=== PATIENT | female | born 1965 ===

== ENCOUNTER 2018-08-01 22:20 | Emergency (ER) | payer MEDICAID ==
[2018-08-01 22:20] VITALS: BMI 32.9
[2018-08-01 22:38] VITALS: TEMP 98.3
[2018-08-01] MEDS ORDERED: (Novolin R) Insulin Human Regular 100 units/ml vial IVP STA ×2 (22:44→23:03)
[2018-08-01] MEDS ORDERED: Sodium Chloride 0.9% 1,000 ML IV ONE (22:44)
--- NOTE | 2018-08-01 23:02 | C.PDOC ---
History Of Present Illness 53 year old female, whose past medical history includes diabetes (non-compliant with medications) presents to the ED for evaluated of elevated blood sugar levels. Patient states she misplaced her medications and has been non-compliant for several months. She was evaluated at [facility], where she underwent labwork and was told that she is at a high risk for a heart attack. Patient was evaluated by her PMD and underwent bloodwork and EKG, of which the results are pending. Patient is scheduled to undergo a stress test and echocardiogram in three days. Patient states her PMD did not prescribe her with her diabetes medication because he is awaiting results of her labwork. Patient states she checked her blood glucose level today and found it to be above 500, prompting visit. She reports headache, dizziness, increased thirst and urinary frequency, dyspnea on exertion, and slight epigastric pain. She denies fever, chills, nausea, vomiting. Time Seen by Provider: 08/01/18 22:44 Chief Complaint (Nursing): High Blood Sugar History Per: Patient History/Exam Limitations: no limitations Onset/Duration Of Symptoms: Hrs Current Symptoms Are (Timing): Still Present Current Diabetic Medications: None Causative (Exacerbating) Factor(s): Missed Taking Medication Associated Infectious Symptoms: Urinary Frequency. denies: Nausea, Vomiting Treatment Prior To Provider Evaluation: None Additional History Per: Patient Past Medical History Reviewed: Historical Data, Nursing Documentation, Vital Signs Vital Signs: Last Vital Signs Temp 98.3 F 08/01/18 22:31 Pulse 70 08/01/18 22:31 Resp 18 08/01/18 22:31 BP 157/83 H 08/01/18 22:31 Pulse Ox 96 08/01/18 22:31 - Medical History PMH: Anxiety, Bronchitis, Depression, HTN (NO MEDS), Hypothyroidism Denies: Anemia, Chronic Kidney Disease Surgical History: No Surg Hx - [facility] Procedures NEBULIZER THERAPY (07/01/14) Family History: States: Unknown Family Hx - Social History Hx Tobacco Use: No Hx Alcohol Use: Yes Hx Substance Use: No - Immunization History Hx Tetanus Toxoid Vaccination: Yes Hx Influenza Vaccination: Yes (UTD) Hx Pneumococcal Vaccination: No Review Of Systems Constitutional: Positive for: Other (elevated blood sugar, increased thirst ). Negative for: Fever, Chills Gastrointestinal: Positive for: Abdominal Pain (epigastric ). Negative for: Nausea, Vomiting Genitourinary: Positive for: Frequency Neurological: Positive for: Headache, Dizziness Physical Exam - Physical Exam Appears: Non-toxic, No Acute Distress Skin: Normal Color, Warm, Dry Head: Atraumatic, Normacephalic Eye(s): bilateral: Normal Inspection Oral Mucosa: Moist Neck: Supple Chest: Symmetrical, No Deformity, No Tenderness Cardiovascular: Rhythm Regular, No Murmur Respiratory: Normal Breath Sounds, No Rales, No Rhonchi, No Wheezing Gastrointestinal/Abdominal: Soft, No Tenderness, No Guarding, No Rebound, Other (slightly obese ) Extremity: Normal ROM, Capillary Refill (less than 2 seconds ), No Other (pitting edema ) Neurological/Psych: Oriented x3, Normal Speech, Normal Cognition ED Course And Treatment - Laboratory Results Result Diagrams: 08/01/18 22:59 08/01/18 22:59 O2 Sat by Pulse Oximetry: 96 (on RA) Pulse Ox Interpretation: Normal Medical Decision Making Medical Decision Making: Impression: 53 year old female with elevated blood sugar Plan: * bloodwork * urinalysis * EKG * Novolin IVP * Metformin PO * IV Fluids * reassess and disposition Progress: Bloodwork, urinalysis, EKG ordered and reviewed. Novolin IVP, Metformin PO and IV Fluids given. Spoke with Dr. Lazcano, recommended control glucose and d/c on Metformin, with PMD f/u Disposition Discussed With Dr.: Beatriz Uriarte Counseled Patient/Family Regarding: Studies Performed, Diagnosis - Disposition Disposition: HOME/ ROUTINE Disposition Time: 23:51 Condition: GUARDED Forms: [facility] (Polish) - Clinical Impression Clinical Impression: Hyperglycemia - Scribe Statement The provider has reviewed the documentation as recorded by the Scribe (Jamila Little) Provider Attestation: All medical record entries made by the Scribe were at my direction and personally dictated by me. I have reviewed the chart and agree that the record accurately reflects my personal performance of the history, physical exam, medical decision making, and the department course for this patient. I have also personally directed, reviewed, and agree with the discharge instructions and disposition. Physician Patient Turnover Patient Signed Over To: Chava Garg Handoff Comments: pending VBG, glucouse control and final dispo.
[2018-08-01] MEDS ORDERED: (Novolin R) Insulin Human Regular 100 units/ml vial IVP ONE (23:06)
[2018-08-01 23:10] LABS: BASO # 0.1 K/uL (0.0-0.2); BASO % 0.8 % (0.0-2.0); EOS # 0.1 K/uL (0.0-0.7); HEMOGLOBIN 12.3 g/dL (11.0-16.0); LYMPH # 2.3 K/uL (1.0-4.3); LYMPH % 31.3 % (20.0-40.0); MEAN CELL VOLUME 81.7 fL (81.0-99.0); MEAN CORPUSCULAR HEMOGLOBIN 26.3 pg (27.0-31.0); MEAN CORPUSCULAR HGB CONC 32.2 g/dL (33.0-37.0); MEAN PLATELET VOLUME 10.1 fL (7.2-11.7); MONO # 0.6 K/uL (0.0-0.8); MONO % 8.4 % (0.0-10.0); NEUT # 4.2 K/uL (1.8-7.0); NEUT % 57.5 % (50.0-75.0); NRBC % 0.1 % (0.0-2.0); RBC 4.68 Mil/uL (3.80-5.20); RED CELL DISTRIBUTION WIDTH 16.1 % (11.5-14.5); WHITE BLOOD COUNT 7.3 K/uL (4.8-10.8)
[2018-08-01] MEDS ORDERED: (Novolin R) Insulin Human Regular 100 units/ml vial ONE (23:15)
[2018-08-01 23:30] LABS: ALB/GLOB RATIO 1.3 (1.0-2.1); ALT/SGPT 30 U/L (9-52); AST/SGOT 20 U/L (14-36); BLOOD UREA NITROGEN 13 mg/dL (7-17); CALCIUM 8.9 mg/dl (8.6-10.4); GFR NON-AFRICAN AMERICAN > 60
[2018-08-02] MEDS ORDERED: Sodium Chloride 0.9% 2,000 ML IV ONE (00:05)
[2018-08-02 00:09] VITALS: BP 145/64; PULSE 71; RESP 24; O2SAT 98
[2018-08-02 00:09] LABS: VENOUS BLOOD GAS BASE EXCESS 3.2 mmol/L (0.0-2.0); VENOUS BLOOD GAS PCO2 58 mmHg (40-60); VENOUS BLOOD GAS PO2 29 mm/Hg (30-55); VENOUS BLOOD PH 7.33 (7.32-7.43)
[2018-08-02] MEDS ORDERED: Sodium Chloride 0.9% 1,000 ML ONE (00:14)
[2018-08-02 00:42] LABS: SQUAMOUS EPITHIAL 16 /hpf (0-5); URINE BILIRUBIN NEGATIVE (NEGATIVE); URINE BLOOD NEGATIVE (NEGATIVE); URINE CLARITY Hazy (Clear); URINE COLOR Yellow (YELLOW); URINE GLUCOSE (UA) 3+ mg/dL (Normal); URINE LEUKOCYTE ESTERASE TRACE Leu/uL (Negative); URINE PROTEIN NEGATIVE (NEGATIVE); URINE UROBILINOGEN NORMAL mg/dL (0.2-1.0)
--- NOTE | 2018-08-03 14:47 | CARD ---
APPROVED REPORT Date of service: 08/01/2018 EKG Measurement Heart [id number] OR 142P36 [id number] <Conclusion> Normal sinus rhythm Normal ECG
== END 2018-08-02 01:14 | disposition home or self-care (01) ==
LOC: C.ER 22:20
DX: E11.65 Type 2 diabetes mellitus with hyperglycemia (principal); Z91.19 Patient's noncompliance with other medical treatment and regimen; I10 Essential (primary) hypertension; E03.9 Hypothyroidism, unspecified
CPT/HCPCS: 80053; 81001; 82009; 82803; 82948; 85025; 93005; 96361; 96374; 99285; J7030

== ENCOUNTER 2018-08-04 08:37 | Observation (INO) | payer MEDICAID ==
[2018-08-04 08:38] VITALS: BMI 32.9
--- NOTE | 2018-08-04 09:06 | C.PDOC ---
History Of Present Illness 53 y/o female, w/PMhx of diabetes and HTN, presents to the ER for evaluation after she was complaining of intermittent chest pain been present for the past 2 weeks. Patient was complaining of chest pain while having Echo done in the hospital today so decided to send her to the ER. Patient reports that she had midsternal chest pain and the pain radiates to the left side of her body. She notes that she was evaluated for chest pain at [facility] 1 week ago and she was discharged. She is also complaining of vomiting x5. Denies having fever, chills, SOB, leg swelling, abdominal pain, dysuria, and hematuria. Time Seen by Provider: 08/04/18 08:39 Chief Complaint (Nursing): Chest Pain History Per: Patient History/Exam Limitations: no limitations Onset/Duration Of Symptoms: Days Current Symptoms Are (Timing): Still Present Severity: Moderate Past Medical History Reviewed: Historical Data, Nursing Documentation, Vital Signs Vital Signs: Last Vital Signs Temp 98.1 F 08/04/18 08:46 Pulse 69 08/04/18 08:53 Resp 24 08/04/18 08:53 BP 185/79 H 08/04/18 08:53 Pulse Ox 95 08/04/18 08:53 - Medical History PMH: Anxiety, Bronchitis, Depression, HTN (NO MEDS), Hypothyroidism Denies: Anemia, Chronic Kidney Disease Other Surgeries: Hx of surgeries - [facility] Procedures NEBULIZER THERAPY (07/01/14) Family History: States: No Known Family Hx - Social History Hx Tobacco Use: No Hx Alcohol Use: Yes Hx Substance Use: No - Immunization History Hx Tetanus Toxoid Vaccination: Yes Hx Influenza Vaccination: Yes (UTD) Hx Pneumococcal Vaccination: No Review Of Systems Except As Marked, All Systems Reviewed And Found Negative. Constitutional: Negative for: Fever, Chills Cardiovascular: Positive for: Chest Pain Respiratory: Negative for: Shortness of Breath Gastrointestinal: Positive for: Vomiting. Negative for: Abdominal Pain, Diarrhea Genitourinary: Negative for: Dysuria, Hematuria Physical Exam - Physical Exam Appears: Non-toxic, No Acute Distress Skin: Normal Color, Warm, Dry Head: Atraumatic, Normacephalic Eye(s): bilateral: Normal Inspection Nose: Normal Oral Mucosa: Moist Neck: Supple Chest: Symmetrical, No Tenderness, No Ecchymosis, Other (no rash) Cardiovascular: Rhythm Regular Respiratory: Normal Breath Sounds, No Rales, No Rhonchi, No Wheezing Gastrointestinal/Abdominal: Normal Exam, Soft, No Tenderness, No Guarding, No Rebound Neurological/Psych: Oriented x3, Normal Speech ED Course And Treatment - Laboratory Results Result Diagrams: 08/04/18 09:23 08/04/18 09:23 Lab Interpretation: No Acute Changes ECG: Interpreted By Me ECG Rhythm: Sinus Rhythm ECG Interpretation: No Acute Changes Rate From EC O2 Sat by Pulse Oximetry: 95 (RA) Pulse Ox Interpretation: Normal - Radiology CXR: Interpreted by Me CXR Interpretation: Yes: No Acute Disease Progress Note: Treated with zofran IV Reassessment Condition: Improved - Physician Consult Information Physician Contacted: Beatriz Uriarte Outcome Of Conversation: admit Medical Decision Making Medical Decision Making: Plan: --Labs --EKG --CXR --UA --Zofran IV Disposition Discussed With Dr.: Beatriz Uriarte Doctor Will See Patient In The: Hospital Counseled Patient/Family Regarding: Studies Performed, Diagnosis, Need For Followup - Disposition Disposition: HOSPITALIZED Disposition Time: 10:30 Condition: STABLE - POA Present On Arrival: None - Clinical Impression Clinical Impression: Chest pain - 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 - Scribe Statement The provider has reviewed the documentation as recorded by the Jungibe Harvey Gardner Provider Attestation All medical record entries made by the Scribe were at my direction and personally dictated by me. I have reviewed the chart and agree that the record accurately reflects my personal performance of the history, physical exam, medical decision making, and the department course for this patient. I have also personally directed, reviewed, and agree with the discharge instructions and disposition.
[2018-08-04 09:29] LABS: BASO % 0.6 % (0.0-2.0); EOS # 0.1 K/uL (0.0-0.7); EOS % 1.5 % (0.0-4.0); HEMOGLOBIN 13.1 g/dL (11.0-16.0); LYMPH # 1.6 K/uL (1.0-4.3); LYMPH % 23.7 % (20.0-40.0); MEAN CELL VOLUME 79.9 fL (81.0-99.0); MEAN CORPUSCULAR HGB CONC 32.6 g/dL (33.0-37.0); MEAN PLATELET VOLUME 9.9 fL (7.2-11.7); MONO # 0.5 K/uL (0.0-0.8); MONO % 6.7 % (0.0-10.0); NEUT # 4.6 K/uL (1.8-7.0); NEUT % 67.5 % (50.0-75.0); NRBC % 0.1 % (0.0-2.0); RBC 5.01 Mil/uL (3.80-5.20); RED CELL DISTRIBUTION WIDTH 15.8 % (11.5-14.5); WHITE BLOOD COUNT 6.9 K/uL (4.8-10.8)
--- NOTE | 2018-08-04 09:37 | RAD ---
Date of service: 08/04/2018 HISTORY: SOB COMPARISON: Comparison chest dated 05/26/2016. TECHNIQUE: Chest PA and lateral FINDINGS: LUNGS: Suspect minor bibasilar atelectasis. PLEURA: No significant pleural effusion identified. No pneumothorax apparent. CARDIOVASCULAR: No aortic atherosclerotic calcification present. Normal cardiac size. No pulmonary vascular congestion. OSSEOUS STRUCTURES: Minor multilevel degenerative spondylosis of the thoracic spine. VISUALIZED UPPER ABDOMEN: Normal. OTHER FINDINGS: None. IMPRESSION: Minor bibasilar atelectasis.
[2018-08-04 09:42] LABS: ALB/GLOB RATIO 1.2 (1.0-2.1); ALBUMIN 4.4 g/dL (3.5-5.0); ALT/SGPT 37 U/L (9-52); AST/SGOT 25 U/L (14-36); BLOOD UREA NITROGEN 11 mg/dL (7-17); CALCIUM 9.9 mg/dl (8.6-10.4); GFR NON-AFRICAN AMERICAN > 60; LIPASE 64 U/L (23-300)
[2018-08-04 10:36] VITALS: RESP 20
[2018-08-04 10:56] LABS: HCG,QUALITATIVE URINE NEGATIVE (NEGATIVE)
[2018-08-04 11:02] LABS: SQUAMOUS EPITHIAL 11 /hpf (0-5); URINE BILIRUBIN NEGATIVE (NEGATIVE); URINE BLOOD NEGATIVE (NEGATIVE); URINE CLARITY Hazy (Clear); URINE COLOR Yellow (YELLOW); URINE GLUCOSE (UA) 3+ mg/dL (Normal); URINE LEUKOCYTE ESTERASE NEG Leu/uL (Negative); URINE PROTEIN NEGATIVE (NEGATIVE); URINE UROBILINOGEN NORMAL mg/dL (0.2-1.0)
[2018-08-04] MEDS ORDERED: Dextrose 50% SYRINGE Inj (50 ml) IV PRN (14:22)
[2018-08-04] MEDS ORDERED: Glucagon Recombinant 1 mg Inj IM PRN (14:22)
[2018-08-04] MEDS: (Novolog) Insulin Aspart, Recombinant 100 u/ml 10 ml vial SC SCH ×2 (18:00→21:46)
--- NOTE | 2018-08-04 21:05 | CARD ---
APPROVED REPORT Date of service: 08/04/2018 EKG Measurement Heart [id number] VA 132P37 [id number] <Conclusion> Normal sinus rhythm with sinus arrhythmia Normal ECG
[2018-08-04] MEDS: Ranolazine 500 mg Extended Release Tablets PO SCH (21:36)
--- NOTE | 2018-08-04 22:51 | CARD ---
APPROVED REPORT Date of service: 08/04/2018 EXAM: Two-dimensional and M-mode echocardiogram with Doppler and color Doppler. INDICATION Chest Pain 2D DIMENSIONS IVSd0.7 (0.7-1.1cm)LVDd4.5 (3.9-5.9cm) PWd0.8 (0.7-1.1cm)LA Jbqrtz85 (18-58mL) LVDs2.4 (2.5-4.0cm)FS (%) 46.7 % LVEF (%)78.3 (>50%)LVEF (Williamson's)70 % M-Mode DIMENSIONS Left Atrium (MM)2.59 (2.5-4.0cm)IVSd0.64 (0.7-1.1cm) Aortic Root3.07 (2.2-3.7cm)LVDd5.10 (4.0-5.6cm) Aortic Cusp Exc.1.85 (1.5-2.0cm)PWd0.68 (0.7-1.1cm) FS (%) 50 %LVDs2.57 (2.0-3.8cm) LVEF (%)81 (>50%) Mitral Valve MV E Gkzkxczl79.0cm/sMV A Ogkgycaq992.4cm/sE/A ratio0.8 TDI Lateral E' Peak V8.61cm/sMedial E' Peak V4.45cm/sE/Lateral E'9.5 E/Medial E'18.4 Tricuspid Valve TR Peak Zqyllfoi727sx/sTR Peak Gr.4vbTbNCTG54yuHv LEFT VENTRICLE The left ventricle is normal size. There is normal left ventricular wall thickness. Left ventricle systolic function is normal. The Ejection Fraction is >70%. There is normal LV segmental wall motion. Tissue Doppler imaging reveals abnormal left ventricular diastolic dysfunction. RIGHT VENTRICLE The right ventricle is normal size. There is normal right ventricular wall thickness. The right ventricular systolic function is normal. ATRIA The left atrium size is normal. The right atrium size is normal. The interatrial septum is intact with no evidence for an atrial septal defect. AORTIC VALVE The aortic valve is normal in structure. No aortic regurgitation is present. There is no aortic valvular stenosis. MITRAL VALVE The mitral valve is normal in structure. There is no evidence of mitral valve prolapse. There is no mitral valve stenosis. Mitral regurgitation is mild. TRICUSPID VALVE The tricuspid valve is normal in structure. There is trace to mild tricuspid regurgitation. Right ventricular systolic pressure is estimated at less than 30 mmHg. There is no pulmonary hypertension. PULMONIC VALVE The pulmonic valve is not well visualized. There is no pulmonic valvular regurgitation. GREAT VESSELS The aortic root is normal in size. PERICARDIAL EFFUSION There is no significant pericardial effusion. <Conclusion> Left ventricle systolic function is normal. The Ejection Fraction is >70%. Diastolic dysfunction. No aortic regurgitation is present. Mitral regurgitation is mild. There is trace to mild tricuspid regurgitation. There is no pulmonary hypertension. There is no pulmonic valvular regurgitation.
[2018-08-05 04:31] VITALS: O2SAT 96
[2018-08-05] MEDS: Levothyroxine 125 MCG TAB PO SCH (06:13)
[2018-08-05] MEDS: (Novolog) Insulin Aspart, Recombinant 100 u/ml 10 ml vial SC SCH ×4 (07:14→21:24)
--- NOTE | 2018-08-05 07:17 | CP.PCM.HP ---
History of Present Illness - History of Present Illness History of Present Illness: CC chest pain HPI 53 y/o female, w/PMhx of diabetes and HTN, presents to the ER for evaluation after she was complaining of intermittent chest pain been present for the past 2 weeks. Patient was complaining of chest pain while waiting to have Echo done in the hospital today . Patient reports that she had midsternal chest pain and the pain radiates to the left side of her body. Pt was sent to the ER for evaluation. She notes that she was evaluated for chest pain at [facility] 1 week ago and she was discharged. She is also complaining of vomiting x5. Denies having fever, chills, SOB, leg swelling, abdominal pain, dysuria, and hematuria Present on Admission - Present on Admission Any Indicators Present on Admission: Yes History of Uncontrolled Diabetes: Yes Review of Systems - EENT Nose/Mouth/Throat: Dry Mouth - Cardiovascular Cardiovascular: Chest Pain, Dyspnea on Exertion - Respiratory Respiratory: Dyspnea on Exertion - Gastrointestinal Gastrointestinal: Nausea Past Patient History - Infectious Disease Hx of Infectious Diseases: None - Past Medical History & Family History Past Medical History?: Yes - Past Social History Smoking Status: Never Smoked - CARDIAC Hx Hypertension: Yes (NO MEDS) - PULMONARY Hx Bronchitis: Yes - NEUROLOGICAL Hx Neurological Disorder: No - HEENT Hx HEENT Problems: No - RENAL Hx Chronic Kidney Disease: No - ENDOCRINE/METABOLIC Hx Hypothyroidism: Yes - HEMATOLOGICAL/ONCOLOGICAL Hx Anemia: No - INTEGUMENTARY Hx Dermatological Problems: No - MUSCULOSKELETAL/RHEUMATOLOGICAL Hx Musculoskeletal Disorders: No Hx Falls: Yes - GASTROINTESTINAL Hx Gastrointestinal Disorders: No - GENITOURINARY/GYNECOLOGICAL Hx Genitourinary Disorders: No - PSYCHIATRIC Hx Anxiety: Yes Hx Depression: Yes Hx Substance Use: No - SURGICAL HISTORY Hx Surgeries: Yes Other/Comment: RIGHT FOOT SURGERY-LIGAMENT - ANESTHESIA Hx Anesthesia: Yes Hx Anesthesia Reactions: No Hx Malignant Hyperthermia: No Meds Allergies/Adverse Reactions: Allergies Allergy/AdvReac Type Severity Reaction Status Date / Time No Known Allergies Allergy Verified 08/04/18 08:47 Physical Exam - Constitutional Appears: Non-toxic - Head Exam Head Exam: NORMAL INSPECTION - Eye Exam Eye Exam: absent: Scleral icterus Pupil Exam: PERRL - ENT Exam ENT Exam: Mucous Membranes Moist - Neck Exam Neck exam: Positive for: Full Rom - Respiratory Exam Respiratory Exam: Clear to Auscultation Bilateral - Cardiovascular Exam Cardiovascular Exam: REGULAR RHYTHM - GI/Abdominal Exam GI & Abdominal Exam: Soft - Extremities Exam Extremities exam: Negative for: pedal edema - Neurological Exam Neurological exam: Alert, Oriented x3 Results - Vital Signs Recent Vital Signs: Last Vital Signs Temp 97.3 F L 08/05/18 04:30 Pulse 70 08/05/18 04:30 Resp 20 08/05/18 04:30 BP 131/74 08/05/18 04:30 Pulse Ox 96 08/05/18 04:30 - Labs Result Diagrams: 08/04/18 09:23 08/04/18 09:23 Labs: Laboratory Results - last 24 hr 08/04/18 08/04/18 08/04/18 09:23 09:23 10:48 WBC 6.9 RBC 5.01 Hgb 13.1 Hct 40.1 MCV 79.9 L MCH 26.0 L MCHC 32.6 L RDW 15.8 H Plt Count 246 MPV 9.9 Neut % (Auto) 67.5 Lymph % (Auto) 23.7 [place] % (Auto) 6.7 Eos % (Auto) 1.5 Baso % (Auto) 0.6 Neut # (Auto) 4.6 Lymph # (Auto) 1.6 [place] # (Auto) 0.5 Eos # (Auto) 0.1 Baso # (Auto) 0.0 Sodium 134 Potassium 3.9 Chloride 96 L Carbon Dioxide 28 Anion Gap 14 BUN 11 Creatinine 0.5 L Est GFR ( Amer) > 60 Est GFR (Non-Af Amer) > 60 POC Glucose (mg/dL) Random Glucose 334 H Calcium 9.9 Total Bilirubin 0.9 AST 25 ALT 37 Alkaline Phosphatase 97 Troponin I < 0.0120 Total Protein 7.9 Albumin 4.4 Globulin 3.5 Albumin/Globulin Ratio 1.2 Lipase 64 Urine Color Yellow Urine Clarity Hazy Urine pH 6.0 Ur Specific Loyal 1.031 H Urine Protein Negative Urine Glucose (UA) 3+ H Urine Ketones Trace Urine Blood Negative Urine Nitrate Negative Urine Bilirubin Negative Urine Urobilinogen Normal Ur Leukocyte Esterase Neg Urine WBC (Auto) 1 Urine RBC (Auto) 2 Ur Squamous Epith Cells 11 H Urine HCG, Qual Negative 08/04/18 08/04/18 08/04/18 14:59 17:06 21:42 WBC RBC Hgb Hct MCV MCH MCHC RDW Plt Count MPV Neut % (Auto) Lymph % (Auto) [place] % (Auto) Eos % (Auto) Baso % (Auto) Neut # (Auto) Lymph # (Auto) [place] # (Auto) Eos # (Auto) Baso # (Auto) Sodium Potassium Chloride Carbon Dioxide Anion Gap BUN Creatinine Est GFR ( Amer) Est GFR (Non-Af Amer) POC Glucose (mg/dL) 229 H 226 H Random Glucose Calcium Total Bilirubin AST ALT Alkaline Phosphatase Troponin I < 0.0120 Total Protein Albumin Globulin Albumin/Globulin Ratio Lipase Urine Color Urine Clarity Urine pH Ur Specific Loyal Urine Protein Urine Glucose (UA) Urine Ketones Urine Blood Urine Nitrate Urine Bilirubin Urine Urobilinogen Ur Leukocyte Esterase Urine WBC (Auto) Urine RBC (Auto) Ur Squamous Epith Cells Urine HCG, Qual 08/05/18 06:15 WBC RBC Hgb Hct MCV MCH MCHC RDW Plt Count MPV Neut % (Auto) Lymph % (Auto) [place] % (Auto) Eos % (Auto) Baso % (Auto) Neut # (Auto) Lymph # (Auto) [place] # (Auto) Eos # (Auto) Baso # (Auto) Sodium Potassium Chloride Carbon Dioxide Anion Gap BUN Creatinine Est GFR ( Amer) Est GFR (Non-Af Amer) POC Glucose (mg/dL) 284 H Random Glucose Calcium Total Bilirubin AST ALT Alkaline Phosphatase Troponin I Total Protein Albumin Globulin Albumin/Globulin Ratio Lipase Urine Color Urine Clarity Urine pH Ur Specific Loyal Urine Protein Urine Glucose (UA) Urine Ketones Urine Blood Urine Nitrate Urine Bilirubin Urine Urobilinogen Ur Leukocyte Esterase Urine WBC (Auto) Urine RBC (Auto) Ur Squamous Epith Cells Urine HCG, Qual Assessment & Plan - Assessment and Plan (Free Text) Assessment: [facility] T2dm HTN Anxiety disorder Plan: Trops Meds as ordered Echo Dany - Date & Time Date: 08/04/18 Time: 09:00
[2018-08-05] MEDS: Ranolazine 500 mg Extended Release Tablets PO SCH ×2 (10:00→17:36)
[2018-08-05] MEDS: Enoxaparin 40 mg Syringe SC SCH (10:00)
[2018-08-06 02:42] VITALS: TEMP 98.2
--- NOTE | 2018-08-06 04:39 | CARD ---
APPROVED REPORT Date of service: 08/05/2018 Protocol: PHARMACOLOGICAL STRESS Test Type: LEXISCAN Test Indications: CHEST PAIN Medications: LIST SCAN Medical History: CHEST PAIN Target HR: 167 bpm Resting ECG: NSR Resting Heart Rate: 80 bpm Resting Blood Pressure: 123/70mmHg submaximum (85%): 142 bpm TEST SUMMARY [id number]/70.0. INFUSIONDOSE 100:300.00.01.094/.0. [id number]/70.0. PROCEDURE Pharmacologic stress testing was performed using 0.4mg per 5ml of regadenoson given intravenously over 7-10 seconds. POST EXERCISE Reason for Termination: Protocol Completed Target HR: No Max HR: 94 bpm 66% of Maximum Predicted HR: 167 bpm Exercise duration: 00:30 min:sec, 0 Stage Exercise capacity: 1.0METs Max Blood Pressure: 142/70mmHg Blood Pressure response to exercise: normal resting BP - appropriate response Heart Rate response to exercise: appropriate Chest Pain: No, none Angina index: 0 Arrhythmia: No, none ST Change: No, none Deviation: 0 mm INTERPRETATION Stress EKG Conclusion: NEGATIVE LEXISCAN STRESS TEST NORMAL BP RESPONSE TO LEXISCAN NUCLEAR STUDIES TO BE READ SEPARATELY EXAM: Myocardial Perfusion STRESS/REST Imaging Protocol The imaging protocol used to acquire images was Stress Tc-99m/rest Tc-99m 1 day StressStress Spect myocardial perfusion imaging was performed in supine position 40 minutes following the injection of 13.2 mCi of Tc-99 Myoview. Gated Rest Spect was performed 41 minutes after intravenous 33 mCi Tc-99 Myoview injection. The images were gated to evaluate regional wall motion and calculate ventricular ejection fraction.Images were reconstructed using backfilter projection method in short horizontal and verticle long axis. Spect slices were generated. RESTING DATA EDV75.99jyXC2.10L/min1/3 Pk. Filling Rate2.03EDV/sec LV Time to Pk. Filling Lnrd416.24msec ESV6.00mlMyocardial Llfi520.00gLV Time to Pk. Ejection Ozyt057.02msec Pk. Fill Rate3.16EDV/secAv. Heart Rate74.00bpm EF92.00%Pk. Emptying Rate4.35ESV/sec STRESS DATA EDV75.94lbDH1.30L/min ESV12.00mlMyocardial Sgri593.00g Pk. Fill Rate5.34EDV/sec EF84.00%Pk. Emptying Rate5.77ESV/sec 1/3 Pk. Filling Rate1.36EDV/secRegional WT score at stress:1.00 LV Time to Pk. Filling Rate:201.26msecRegional WM score at stress:0.00 LV Time to Pk. Ejection Rate:104.21msecSummed WT score at stress:3.00 Av. Heart Rate84.00bpmSummed WM score at stress:0.00 LV Perf. Quant 17 Seg. SSS1.00 17 Seg. SRS0.00 17 Seg. SDS1.00 Stress Defect Extent (% LAD)0.00Rest Defect Extent (% LAD)0.00Rev. Defect Extent (% LAD)0.00 Stress Defect Extent (% LCX)0.00Rest Defect Extent (% LCX)0.00Rev. Defect Extent (% LCX)0.00 Stress Defect Extent (% RCA)0.00Rest Defect Extent (% RCA)0.00Rev. Defect Extent (% RCA)0.00 Stress Defect Extent (% PATRICK)0.00Rest Defect Extent (% PATRICK)0.00Rev. Defect Extent (% PATRICK)0.00 IMPRESSION Normal Myocardial Perfusion exercise stress study Left Ventricle LV Function:Left ventricle systolic function is normal. The Ejection Fraction is >70%. Regional Wall Motion:No regional wall motion abnormalities noted. Metabolism/Perfusion There are no defects. There are no perfusion/metabolism defects. Conclusion 1. There is no scan evidence of stress-induced ischemia noted. 2. Left ventricle systolic function is normal. 3. The Ejection Fraction is >70%.
[2018-08-06] MEDS: Levothyroxine 125 MCG TAB PO SCH (06:02)
[2018-08-06] MEDS: (Novolog) Insulin Aspart, Recombinant 100 u/ml 10 ml vial SC SCH ×2 (07:52→12:30)
[2018-08-06] MEDS: Enoxaparin 40 mg Syringe SC SCH (09:22)
[2018-08-06] MEDS: Ranolazine 500 mg Extended Release Tablets PO SCH (09:23)
[2018-08-06 09:24] VITALS: BP 135/77
[2018-08-06 12:36] VITALS: PULSE 65
[2018-08-06] MEDS ORDERED: Pneumococcal 23-Valent Vaccine IM ONE (14:00)
== END 2018-08-06 14:00 | disposition home or self-care (01) ==
LOC: C.ER 08:37 → C.6T 10:17
PROVIDERS: ADMIT Internal Medicine; ATTEND Internal Medicine
DX: R07.9 Chest pain, unspecified (principal); I10 Essential (primary) hypertension; E11.9 Type 2 diabetes mellitus without complications; E03.9 Hypothyroidism, unspecified; F41.9 Anxiety disorder, unspecified
CPT/HCPCS: 36415; 71046; 78452; 80053; 81001; 82948; 83690; 84484; 84703; 85025; 93005; 93017; 93306; 96374; 99285; A9502; G0378; J1650; J2405; J2785